=== PATIENT | male | born 1980 | race Caucasian/White ===

== ENCOUNTER 2017-04-28 15:59 | Inpatient (IN) | payer SELFPAY ==
[2017-04-28 18:10] LABS: #Basophils 0.1 thou/uL (0.0-0.2); #Eosinphils 0.4 thou/uL (0.0-0.7); #Neutrophils 6.3 thou/uL (1.40-6.50); %Basophils 0.6 % (0.0-1.0); %Eosinophils 3.8 % (0.0-10.0); %Lymphocytes 33.8 % (21.0-51.0); %Monocytes 8.3 % (0.0-10.0); %Neutrophils 53.5 % (42.0-75.0); Hemoglobin 17.9 g/dL (14.0-18.0); Mean Corpuscular HGB CONC 33.9 g/dL (32.0-36.0); Mean Corpuscular Hemoglobin 32.9 pg (27.0-31.0); Mean Corpuscular Volume 97.2 fl (80.0-94.0); Mean Platelet Volume 7.9 fL (7.4-10.4); Platelet Count 456 thou/uL (130-400); Red Blood Cell (RBC) Count 5.45 mill/uL (4.70-6.10); White Blood Cell (WBC) Count 11.7 thou/uL (4.8-10.8)
[2017-04-28] MEDS ORDERED: Ondansetron HCl/PF 4 MG/2 ML Vial ONE (18:14)
[2017-04-28] MEDS ORDERED: Morphine 4 MG/ML VIAL ONE (18:14)
[2017-04-28 18:37] LABS: ALT (SGPT) 34 U/L (8-55); AST (SGOT) 29 U/L (5-34); Albumin 4.5 g/dL (3.5-5.0); Alkaline Phosphatase 91 U/L (40-150); Anion Gap 18 mmol/L (10-20); BUN (Urea Nitrogen) 12 mg/dL (8.9-20.6); Bilirubin, Total 0.2 mg/dL (0.2-1.2); Calc. Creatinine Clearance 0 mL/min (70-130); Calcium 10.1 mg/dL (7.8-10.44); Carbon Dioxide 22 mmol/L (22-29); Chloride 104 mmol/L (98-107); Estimated GFR-MDRD 88; Globulin 4.2 g/dL (2.4-3.5); Glucose 134 mg/dL (70-105); Potassium 4.2 mmol/L (3.5-5.1); Protein, Total 8.7 g/dL (6.0-8.3); Sodium 140 mmol/L (136-145)
[2017-04-28] MEDS ORDERED: Vancomycin HCl 1.5 GM in Sodium Chloride 0.9% 250 ML 300 ML IVPB SCH (18:45)
[2017-04-28] MEDS ORDERED: Ketorolac Tromethamine 30 MG/ML VIAL ONE (19:16)
[2017-04-28] MEDS ORDERED: Ondansetron HCl/PF 4 MG/2 ML Vial IV PRN (19:27)
[2017-04-28] MEDS ORDERED: HYDROcodone/Acetaminophen 10/325 mg Tablet PO PRN (19:27)
[2017-04-28] MEDS ORDERED: Fentanyl 100 MCG/2 ML VIAL SLOW IVP PRN (19:27)
[2017-04-28] MEDS ORDERED: TETANUS AND DIPHTHERIA TOX/PF 0.5 ML DISP.SYRIN IM SCH (19:30)
[2017-04-28] MEDS ORDERED: Ondansetron ODT 4 MG TAB SL PRN (21:31)
[2017-04-28] MEDS ORDERED: Ondansetron HCl/PF 4 MG/2 ML Vial IVP PRN (21:31)
[2017-04-28] MEDS ORDERED: Acetaminophen 325 MG TAB PO PRN (21:31)
[2017-04-28 22:19] LABS: Lactic Acid 1.4 mmol/L (0.5-2.2)
[2017-04-28] MEDS: Dextrose 5 % And 0.9 % NaCl 1,000 ML IV SCH (22:35)
--- NOTE | 2017-04-28 22:48 | HP ---
DIAGNOSIS: Infected right index finger with abscess. HISTORY OF PRESENT ILLNESS: This is a pleasant gentleman who is 37 years of age. He has had an infe ction for about a week. He has been placed on oral Bactrim without any relief of this infection of h is index finger. He has had previous I&D procedure, no cultures were performed at that time despite that she has worsening pain, he presented back to [place] [facility] today and was transferred here for defini tive treatment. PAST MEDICAL HISTORY: Negative. CURRENT MEDICATIONS: None. ALLERGIES TO MEDICATIONS: PENICILLIN and CODEINE. SOCIAL HISTORY: He smokes cigarettes, does not drink heavily. He does have a good family support sy stem. He works as a furniture re-seller. PHYSICAL EXAMINATION: GENERAL: Shows a pleasant gentleman, in no distress. HEENT: Normocephalic, atraumatic. NECK: Supple. LUNGS: Clear. HEART: Regular. ABDOMEN: Soft, nontender. EXTREMITIES: Right index finger at right hand shows that he has swelling and redness. No drainage a t this time. There is an open wound, which appears to be clotted. There is no tenderness along the flexor tendon sheath. There is no palpable adenopathy proximally. No ascending cellulitis or lympha ngitis. IMAGING: X-rays do not show any signs of osteomyelitis. ASSESSMENT: Refractory skin infection with deep abscess formation secondary to possibly some type of bite or puncture. Plan at this time is for remission, OR tomorrow for irrigation and drainage of th e index finger. He will be placed on IV antibiotics including vancomycin and Levaquin for likely MRS A infection and for mixed polymicrobial infection.
[2017-04-28] MEDS: HYDROcodone/Acetaminophen 10/325 mg Tablet PO PRN (23:20)
[2017-04-29 00:29] VITALS: BMI 32.8
[2017-04-29] MEDS: Fentanyl 100 MCG/2 ML VIAL SLOW IVP PRN ×7 (03:12→23:34)
[2017-04-29] MEDS: Dextrose 5 % And 0.9 % NaCl 1,000 ML IV SCH (07:52)
[2017-04-29] MEDS ORDERED: Fentanyl 100 MCG/2 ML VIAL ONE ×2 (08:39→10:43)
[2017-04-29] MEDS: Vancomycin HCl 1.5 GM in Sodium Chloride 0.9% 250 ML 300 ML IVPB SCH ×2 (09:00→20:57)
[2017-04-29] MEDS ORDERED: Midazolam HCl 2 mg/2 ml Vial ONE (09:38)
[2017-04-29] MEDS ORDERED: Lidocaine 1% (PF) 30 ML VIAL ONE (09:50)
[2017-04-29] MEDS ORDERED: Ondansetron HCl/PF 4 MG/2 ML Vial IVP PRN (10:21)
[2017-04-29] MEDS ORDERED: Promethazine HCl 25 MG/ML VIAL SLOW IVP PRN (10:21)
[2017-04-29] MEDS ORDERED: Promethazine HCl 25 MG/ML VIAL IM PRN (10:21)
[2017-04-29] MEDS ORDERED: Ketorolac Tromethamine 30 MG/ML VIAL IVP PRN (10:21)
[2017-04-29] MEDS ORDERED: Meperidine HCl/PF 25 MG/ML VIAL SLOW IVP PRN (10:21)
[2017-04-29] MEDS ORDERED: Meperidine HCl/PF 25 MG/ML VIAL ONE (10:57)
[2017-04-29] MEDS ORDERED: Lidocaine 1% PF 5 ML VIAL ONE (12:13)
[2017-04-29] MEDS ORDERED: Ondansetron HCl/PF 4 MG/2 ML Vial ONE (12:13)
[2017-04-29] MEDS ORDERED: PROPOFOL 200 MG/20 ML VIAL ONE (12:13)
--- NOTE | 2017-04-29 13:00 | OP ---
PREOPERATIVE DIAGNOSIS: Abscess index finger, refractory to outpatient treatment. POSTOPERATIVE DIAGNOSIS: Abscess index finger, refractory to outpatient treatment. PROCEDURE PERFORMED: Irrigation and debridement with removal of skin and subcutaneous tissue, right index finger. SPECIMEN: Culture. DRAINS: None. Wound was packed with iodoform. COMPLICATIONS: None. DESCRIPTION OF PROCEDURE: The patient was taken to the operating where TIVA anesthesia induced, anes thetized with lidocaine. The abscess was opened. The majority of his pulp of his index finger was l iquified and have concerns as to the viability of the skin on the pulp. He also had superficial ski n slough all the way down to the PIP joint. This was removed after doing sharp debridement of all no nviable tissue. Tourniquet was released. Irrigation was performed. I did send some of this tissue for culture, even though he was started on antibiotics yesterday, he had already been on antibiotics for about a week prior to this. The wound was packed with iodoform and sterile dressings applied.
[2017-04-29] MEDS: HYDROcodone/Acetaminophen 10/325 mg Tablet PO PRN ×2 (15:51→20:57)
[2017-04-30] MEDS: HYDROcodone/Acetaminophen 10/325 mg Tablet PO PRN ×3 (05:05→20:23)
[2017-04-30 08:21] LABS: Vancomycin, Trough 13.4 ug/mL
[2017-04-30] MEDS: Fentanyl 100 MCG/2 ML VIAL SLOW IVP PRN ×2 (09:29→14:34)
[2017-04-30] MEDS: Vancomycin HCl 1.5 GM in Sodium Chloride 0.9% 250 ML 300 ML IVPB SCH ×2 (09:29→20:22)
[2017-05-01] MEDS: Fentanyl 100 MCG/2 ML VIAL SLOW IVP PRN (00:32)
[2017-05-01] MEDS: HYDROcodone/Acetaminophen 10/325 mg Tablet PO PRN ×2 (04:35→08:22)
[2017-05-01] MEDS: Vancomycin HCl 1.5 GM in Sodium Chloride 0.9% 250 ML 300 ML IVPB SCH (08:21)
[2017-05-01 08:39] VITALS: BP 166/109; TEMP 97.9
--- NOTE | 2017-05-04 21:48 | PQF ---
Winston Kirby BARRY MD [id number] [place] [id number] CLINICAL DOCUMENTATION CLARIFICATION FORM: POST DISCHARGE Addendum to original discharge summary date: ____ Late entry note date: __ DATE: 05/04/2016 ATTN: Lino Vale MD Please exercise your independent, professional judgment in responding to the clarification form. Clinical indicators are provided on the bottom of this form for your review OP Note Procedure Performed: Irrigation and debridement with removal of skin and subcutaneous tissue, right index finger ....He also had superficial skin slough all the way down to the PIP joint. This was removed after doing sharp debridement of all nonviable tissue. Tourniquet was released. Irrigation was performed. Please check appropriate box(s): [ ] Excisional Debridement: [ ] Excised [ ] Cut away [ ] Other: Depth / layer: (deepest layer of debridement): [ ] Skin[ ] SubQ Tissue [ ] Fascia [ ] Muscle [ ] Tendon [ ] Bone Appearance of wound: (e.g., down to fresh bleeding tissue, etc.)___ Margins: (please specify): / x x Instruments used: [ ] Scissors [ ] Scalpel [ ] Curette [ ] Soft tissue clipper [ ] Other: [ ] Non-excisional Debridement: (Removal by ?ushing, brushing, chemical, or washing) [ ] Incision and Drainage only (No Debridement): Depth:[ ] Skin [ ] Sub Q[ ] Into soft tissue [ ] Escharectomy [ ] Other procedure diagnosis [ ] Unable to determine For continuity of documentation, please document condition throughout progress notes and discharge summary. Thank You. CLINICAL INDICATORS - SIGNS / SYMPTOMS / LABS I&D Cutting away of tissue (e.g., scissors, scalpel, curette, etc.) Debridement Removal of or excision of necrotic devitalized tissue or slough RISK FACTORS Bedridden/Immobile patient Infected/gangrenous ulcer or wound TREATMENTS: Surgical intervention PT for dressings/MIST therapy/ Hyperbaric therapy (This form is maintained as a part of the permanent medical record) 2015 [employer]. All Rights Reserved Obiormarcella Jackman [email or web address] [phone] MTDD
--- NOTE | 2017-09-11 13:12 | DIS ---
DATE OF ADMISSION: 04/28/2017 DATE OF DISCHARGE: 05/01/2017 ADMISSION DIAGNOSIS: Right index finger cellulitis with abscess. DISCHARGE DIAGNOSIS: Right index finger cellulitis with abscess. OPERATIVE PROCEDURE: Incision and drainage washout, exploration, right index finger. CONSULTANTS: None. BRIEF CLINICAL HISTORY: Winston is a 37-year-old white male who came to the emergency room after fail ing outpatient management of infected right index finger. He had been seen at another facility[facility] with Bactrim and failed to appreciably improved. He then presented [facility] and wa s transferred to our facility for further orthopedic evaluation and need for surgical exploration of the finger. Postoperatively, he did relatively well at the time he was placed on clindamycin for ant ibiotics. At the time, his hospital course was otherwise unremarkable. At the time of discharge, he is afebrile, ambulatory without assistance, tolerating a regular diet, and voiding without difficult y. His cultures demonstrated methicillin-resistant Staph aureus, sensitive to clindamycin. He will be scheduled for wound care followup and daily dressing changes at home. We will be happy to see the patient on an as needed basis between now and his appointment in 10-12 days. CONDITION ON DISCHARGE: Stable. PROGNOSIS: Good.
== END 2017-05-01 11:17 | disposition home or self-care (01) | DRG 983 ==
LOC: ERS 15:59 → OBSVTOIN 20:14 → SURG A 20:14
PROVIDERS: ADMIT Orthopaedic Surgery; ATTEND Orthopaedic Surgery
PROC: 0JDJ0ZZ Extraction of Right Hand Subcutaneous Tissue and Fascia, Open Approach (ICD-10-PCS; principal; 2017-04-30)
DX: L02.511 Cutaneous abscess of right hand (principal); F17.210 Nicotine dependence, cigarettes, uncomplicated; Z88.5 Allergy status to narcotic agent; Z88.0 Allergy status to penicillin
CPT/HCPCS: 36415; 80053; 80202; 83605; 87070; 87077; 87186; 87205; 96365; 96367; 96375; 99406; J1885; J1956; J2001; J2175; J2250; J2270; J2405; J2704; J3010; J3370; J7050